=== PATIENT | female | born 1970 | race Caucasian/White ===

== ENCOUNTER 2024-05-20 15:51 | Emergency (ER) | payer OTHER ==
[~2024-05-20] VITALS: Ht 162.6 cm; Wt 65.0 kg
[2024-05-20 16:49] LABS: Urine Bacteria None Seen /hpf (None Seen)
[2024-05-20 16:51] VITALS: PULSE 105; RESP 17; O2SAT 98
[2024-05-20 16:52] LABS: Urine Blood Negative /uL (Negative); Urine Clarity Turbid (Clear); Urine Color Orange (Yellow); Urine Mucus MODERATE (None Seen); Urine Protein, UAD 1+ (Negative); Urine Specific Gravity 1.027 (1.001-1.035); Urine Urobilinogen 3 mg/dL (Negative); Urine WBC 3 /hpf (0 - 5)
[2024-05-20 16:56] LABS: Basophils # (auto) 0.1 10 ^3/uL (0-0.2); Basophils % (auto) 0.8 % (0.0-2.0); Eosinophils # (auto) 0 10 ^3/uL (0-0.8); Eosinophils % (auto) 0.1 % (0.0-7.0); Hematocrit 44.9 % (36.0-46.0); Hemoglobin 15.5 g/dL (12.2-16.2); Lymphocytes # (auto) 2.6 10 ^3/uL (0.4-5.4); Lymphocytes % (auto) 33.4 % (10.0-50.0); Mean Corpuscular Hemoglobin 35.8 pg (28.0-32.0); Mean Corpuscular Hgb Conc. 34.5 g/dL (32.0-36.0); Mean Corpuscular Volume 103.8 fL (80.0-100.0); Monocytes # (auto) 0.6 10 ^3/uL (0-1.3); Monocytes % (auto) 7.7 % (0.0-12.0); Neutrophils # (auto) 4.6 10 ^3/uL (1.6-8.6); Nucleated Red Blood Cells % 0.2 %; Red Blood Cells 4.32 10^6/uL (4.0-5.20); Red Cell Distribution Width 12.8 % (11.8-14.3); White Blood Cell 7.9 10^3/uL (4.4-10.8)
[2024-05-20] MEDS: SODIUM CHLORIDE 0.9% 500 ML IVB ONE (17:13)
[2024-05-20 17:23] LABS: Alanine Aminotransferase 96 U/L (7-40); Albumin 4.3 g/dL (3.2-4.8); Alkaline Phosphatase 100 U/L (46-116); Anion Gap 17 (5-15); Aspartate Aminotransferase 104 U/L (13-40); BUN/Creatinine Ratio 32.8 (10.0-20.0); Blood Urea Nitrogen 21 mg/dL (9-23); Calcium 10.5 mg/dL (8.7-10.4); Carbon Dioxide 22 mmol/L (20-30); Chloride 99 mmol/L (98-107); Glucose 114 mg/dL (74-106); Sodium 138 mmol/L (136-145)
[2024-05-20 17:24] LABS: Bilirubin, Total 1.7 mg/dL (0.2-1.0); Total Protein 7.4 g/dL (5.7-8.2)
[2024-05-20] MEDS: SODIUM CHLORIDE 0.9% 1,000 ML IV ONE (18:16)
[2024-05-20 19:25] VITALS: PULSE 94; RESP 14; O2SAT 98
[2024-05-20] MEDS: POTASSIUM CHL 20MEQ/100ML 100 ML IV SCH (19:57)
[2024-05-21 05:30] VITALS: BP 159/98; PULSE 76; RESP 12; TEMP 98.3; O2SAT 97
== END 2024-05-21 05:55 | disposition short-term general hospital (02) ==
LOC: ER 15:51 → EDBD 15:51 → ER 05-21 05:55
DX: G61.0 Guillain-Barre syndrome (principal); G82.50 Quadriplegia, unspecified; D75.89 Other specified diseases of blood and blood-forming organs; E87.6 Hypokalemia; R74.8 Abnormal levels of other serum enzymes
CPT/HCPCS: 36415; 70450; 71045; 80053; 81001; 83735; 84443; 84484; 85025; 93005; 96361; 96365; 96366; 99285; J3480; J7030; J7040